=== PATIENT | male | born 1965 | race Caucasian/White ===

== ENCOUNTER 2023-08-03 11:38 | Day surgery (SDC) | payer BC ==
[~2023-08-03] VITALS: Ht 188 cm; Wt 102.3 kg
[~2023-08-03 11:38] MED LIST: CELEBREX200 MG PO; CIALIS2.5 MG PO; HYDROCHLOROTHIA25 MG PO; IBLOOD GLUCOSE TEST STRIP 1 EA TEST VI PRN; LACTATED RINGER'S 1,000 ML IV SCH; LIDOCAINE HCL 1% 5 ML SDV INJ ONE; LISINOPRIL40 MG PO; METOPROLOL SUCC50 MG PO; MIDAZOLAM HCL 5 MG/5 ML VIAL IV PRN; PROVENTIL HFA6.7 GM INH; VALACYCLOVIR500 MG PO; fentaNYL citrate 100 MCG/2 ML VIAL IV PRN
[2023-08-03 11:58] VITALS: BP 153/98
[2023-08-03] MEDS ORDERED: fentaNYL citrate 100 MCG/2 ML VIAL ONE (12:45)
[2023-08-03] MEDS ORDERED: MIDAZOLAM HCL 5 MG/5 ML VIAL ONE (12:45)
--- NOTE | 2023-08-03 14:16 | NUR ---
08/03/23 1416 Elena Puga PT TO PACU ALERT AND AWAKE DENIES PAIN AND NAUSEA. PT PASSING GAS.
[2023-08-03 14:43] VITALS: BP 115/73
--- NOTE | 2023-08-05 13:37 | OR ---
[facility] [address] [place], [place] [address] Signed DATE OF OPERATION: 08/03/2023 SURGEON: Mary Arias MD PREOPERATIVE DIAGNOSIS: Colon screening. POSTOPERATIVE DIAGNOSIS: Sigmoid and left-sided diverticulosis. PROCEDURE: Total colonoscopy to cecum. ANESTHESIA: Intravenous sedation; fentanyl 150 mcg and Versed 7 mg. INDICATION: This 58-year-old white man is a patient of Dr. Vijay Ramirez and here for colon screening. He currently has no symptoms of bleeding, diarrhea, or constipation. He is here for screening colonoscopy. He understands the risk of bleeding, infection, and perforation. FINDINGS: The prep was excellent. Complete colonoscopy was undertaken with visualization of the cecum. There was no evidence of polyps or colitis. He had numerous diverticula of the sigmoid and left colon. DESCRIPTION OF PROCEDURE: The patient was brought to the endoscopy suite and placed in the lateral decubitus position, given intravenous sedation to the point of slurred speech and nystagmus. Digital rectal examination was normal. He was given intravenous sedation to the point of slurred speech and nystagmus. An Olympus video colonoscope passed in the rectum and manipulated throughout the colon ultimately intubating the cecum. Elevation of mucosa behind the ileocecal valve confirmed no sign of abnormality there. The scope was withdrawn from that point and examination throughout showed no sign of abnormality other than diverticula of the sigmoid and left colon. Retroflexed view was normal. Scope was removed and the patient was taken to the recovery room in good condition. CONCLUDING DIAGNOSIS: Normal colon. Electronically Signed By: MARY ARIAS MD 08/05/23 1337 PATIENT NAME: FELICITA SIMON OPERATIVE REPORT DATE OF : 63 REPORT #: [id number] PHYSICIAN: MARY ARIAS MD PCP: VIJAY RAMIREZ MD REPORT IS CONFIDENTIAL AND NOT TO BE RELEASED WITHOUT AUTHORIZATION [facility] [address] [place], [place] [address] Signed PLAN: Recommend repeat colonoscopy in 10 years, sooner if symptoms should occur. I would recommend a high-fiber diet as well based on the diverticular disease. He will return to the ongoing care of Dr. Ramirez. MD MARIA E Smith/JAZ /[id number] cc: Vijay Ramirez MD Copies: VIJAY RAMIREZ DMD ~ Electronically Signed By: MARY ARIAS MD 08/05/23 1337 PATIENT NAME: FELICITA SIMON OPERATIVE REPORT DATE OF : 63 REPORT #: [id number] PHYSICIAN: MARY ARIAS MD PCP: VIJAY RAMIREZ MD REPORT IS CONFIDENTIAL AND NOT TO BE RELEASED WITHOUT AUTHORIZATION
== END 2023-08-03 14:55 | disposition home or self-care (01) ==
LOC: DS 11:38 → OPS 11:38 → DS 11:40 → OPS 13:00
PROVIDERS: ATTEND Surgery
PROC: 0DJD8ZZ Inspection of Lower Intestinal Tract, Via Natural or Artificial Opening Endoscopic (ICD-10-PCS; principal; 2023-08-03 13:00)
DX: Z12.11 Encounter for screening for malignant neoplasm of colon (principal); I10 Essential (primary) hypertension; Z72.89 Other problems related to lifestyle; K57.30 Diverticulosis of large intestine without perforation or abscess without bleeding
CPT/HCPCS: 99153; G0500; J2250; J3010; J7121